=== PATIENT | male | born 1975 | race Caucasian/White ===

== ENCOUNTER 2019-09-01 07:37 | Inpatient (IN) | payer OTHER ==
[~2019-09-01] VITALS: Ht 182.9 cm; Wt 68.0 kg
[~2019-09-01 07:37] MED LIST: GUAIFENESIN-CO120 ML PO; PROAIR HFA8.5 GM PO; ZPAK PO
[2019-09-01 07:45] VITALS: BP 130/73
[2019-09-01 08:19] LABS: ABSOLUTE EOSINOPHILS 0.2 thou/uL (0.0-0.7); ABSOLUTE LYMPHOCYTES 1.9 thou/uL (0.8-5.3); ABSOLUTE MONOCYTES 0.5 thou/uL (0.0-1.2); BASOPHILS 0.8 %; EOSINOPHILS 3.3 %; HEMATOCRIT 44.2 % (42.0-52.0); HEMOGLOBIN 15.2 gm/dL (14.0-18.0); LYMPHOCYTES 33.7 %; MCH 31.9 pg (26.0-34.0); MCHC 34.4 g/dL (28.0-37.0); MCV 92.8 fL (80.0-100.0); MONOCYTES 8.7 %; MPV 7.8 fl. (7.2-11.1); NUCLEATED RBCS 0 /100WBC; PLATELET COUNT* 257 thou/uL (150-400); POLYS 53.5 %; RBC 4.77 mil/uL (4.50-6.00); WBC 5.5 thou/uL (4.0-11.0)
[2019-09-01 08:27] LABS: CALCIUM 8.1 mg/dL (8.5-10.1); CREATININE 0.9 mg/dL (0.6-1.3); POTASSIUM 4.9 mmol/L (3.5-5.1)
[2019-09-01 08:31] LABS: ALBUMIN 3.6 g/dL (3.4-5.0); TOTAL BILIRUBIN 0.3 mg/dL (<0.1-1.0); TOTAL PROTEIN 6.6 g/dL (6.4-8.2)
[2019-09-01 12:33] VITALS: BP 102/62
[2019-09-01 16:00] VITALS: BP 96/53
[2019-09-01 18:53] VITALS: BP 96/53
[2019-09-02] MEDS ORDERED: NORCO 5-325 TA1 EAC1 PO (17:35)
== END 2019-09-01 19:20 | disposition home or self-care (01) | DRG 390 ==
LOC: M.ERS 07:37 → M.TBA-ER 10:00 → M.ORTHSURG 12:38
PROVIDERS: Emergency Medicine Emergency Medical Services; ADMIT Family Medicine
DX: K56.1 Intussusception (principal); Z83.3 Family history of diabetes mellitus; F17.210 Nicotine dependence, cigarettes, uncomplicated; Z87.442 Personal history of urinary calculi

== ENCOUNTER 2019-09-02 14:21 | Emergency (ER) | payer OTHER ==
[~2019-09-02] VITALS: Ht 182.9 cm; Wt 68.0 kg
[2019-09-02 15:07] LABS: HEMATOCRIT 41.9 % (42.0-52.0); NUCLEATED RBCS 0 /100WBC; PLATELET COUNT* 240 thou/uL (150-400)
[2019-09-02 15:09] LABS: ABSOLUTE BASOPHILS 0.1 thou/uL (0.0-0.2); ABSOLUTE EOSINOPHILS 0.2 thou/uL (0.0-0.7); ABSOLUTE LYMPHOCYTES 1.6 thou/uL (0.8-5.3); ABSOLUTE MONOCYTES 0.5 thou/uL (0.0-1.2); ABSOLUTE NEUTROPHILS 5.1 thou/uL (1.6-8.1); BASOPHILS 0.8 %; EOSINOPHILS 2.3 %; HEMOGLOBIN 14.3 gm/dL (14.0-18.0); LYMPHOCYTES 21.4 %; MCH 31.7 pg (26.0-34.0); MCHC 34.1 g/dL (28.0-37.0); MCV 92.9 fL (80.0-100.0); MONOCYTES 6.3 %; MPV 8.4 fl. (7.2-11.1); POLYS 69.2 %; RBC 4.51 mil/uL (4.50-6.00); RDW-CV 13.8 % (10.5-14.5); WBC 7.3 thou/uL (4.0-11.0)
[2019-09-02 15:14] LABS: CALCIUM 8.3 mg/dL (8.5-10.1); POTASSIUM 4.1 mmol/L (3.5-5.1)
[2019-09-02 15:19] LABS: ALBUMIN 3.7 g/dL (3.4-5.0); TOTAL BILIRUBIN 0.2 mg/dL (<0.1-1.0); TOTAL PROTEIN 6.4 g/dL (6.4-8.2)
[2019-09-02] MEDS ORDERED: NORCO 5-325 TA1 EAC1 PO (17:35)
[2019-09-02 17:47] VITALS: BP 125/70
== END 2019-09-02 17:49 | disposition left against medical advice (07) ==
LOC: M.ERS 14:21
PROVIDERS: Nurse Practitioner Family
DX: R10.32 Left lower quadrant pain (principal); F17.210 Nicotine dependence, cigarettes, uncomplicated; Z87.442 Personal history of urinary calculi